=== PATIENT | female | born 2000 | race Two or more races ===

== ENCOUNTER 2021-12-12 16:04 | Emergency (ER) | payer OTHER, BC ==
[~2021-12-12] VITALS: Ht 167.6 cm; Wt 51.7 kg
[2021-12-12 16:09] VITALS: BP 108/66
--- NOTE | 2021-12-12 18:08 | NUR ---
left before physician evaluation.
== END 2021-12-12 18:08 | disposition home or self-care (01) ==
LOC: ER 16:12
DX: Z53.21 Procedure and treatment not carried out due to patient leaving prior to being seen by health care provider (principal); K62.89 Other specified diseases of anus and rectum